=== PATIENT | female | born 1970 | race Caucasian/White ===

== ENCOUNTER 2020-05-19 18:53 | Emergency (ER) | payer OTHER ==
[2020-05-19 19:00] VITALS: TEMP 99; BMI 24.2
[2020-05-19] MEDS ORDERED: ASPIRIN 81 MG CHEWABLE TABLETS PO ONE (19:58)
[2020-05-19] MEDS ORDERED: ASPIRIN 81 MG CHEWABLE TABLETS ONE (20:37)
[2020-05-19 20:43] LABS: BASO % 0.9 % (0-2.0); EOS % 0.6 % (0-4.5); HEMATOCRIT 40.5 % (32.4-45.2); HEMOGLOBIN 13.4 GM/dL (10.7-15.3); LYMPH % 19.7 % (8-40); MCH 33.9 pg (25.7-33.7); MCHC 33.2 g/dl (32.0-36.0); MEAN CELL VOLUME 102.2 fl (80-96); MEAN PLT VOLUME 7.2 fl (7.5-11.1); MONO % 10.1 % (3.8-10.2); NEUT % 68.7 % (42.8-82.8); PLATELET COUNT 332 K/MM3 (134-434); RBC 3.96 M/mm3 (3.60-5.2); RDW 12.1 % (11.6-15.6); WHITE BLOOD COUNT 6.1 K/mm3 (4.0-10.0)
[2020-05-19 20:49] LABS: INR 0.94 (0.83-1.09); PROTHROMBIN TIME (PATIENT) 11.4 SEC (9.7-13.0)
[2020-05-19 20:52] LABS: ACTIVATED PTT 23.8 SECONDS (25.2-36.5)
[2020-05-19 20:54] LABS: CHLORIDE 96 mmol/L (98-107); POTASSIUM 4.8 mmol/L (3.5-5.1); SODIUM 130 mmol/L (136-145)
[2020-05-19 20:56] LABS: ALBUMIN 4.4 g/dl (3.4-5.0); ANION GAP 9 MMOL/L (8-16); BLOOD UREA NITROGEN 11.3 mg/dL (7-18); CALCIUM 9.7 mg/dL (8.5-10.1); CO2 26 mmol/L (21-32); GLUCOSE,RANDOM 119 mg/dL (74-106)
[2020-05-19 20:59] LABS: SGOT/AST 27 U/L (15-37); SGPT/ALT 41 U/L (13-61)
[2020-05-19 21:00] LABS: CREATININE 0.6 mg/dL (0.55-1.3)
[2020-05-19 21:01] LABS: BILIRUBIN,TOTAL 0.3 mg/dL (0.2-1); TOT PROT 7.9 g/dl (6.4-8.2)
[2020-05-19 21:02] LABS: ALK PHOS 82 U/L (45-117)
[2020-05-19] MEDS ORDERED: LACTATED RINGERS SOLUTION 1000 ML INFUS.BAG IV ONE (22:07)
[2020-05-19] MEDS ORDERED: ACETAMINOPHEN 325 MG TABLET (FP) PO ONE (23:29)
[2020-05-19] MEDS ORDERED: ACETAMINOPHEN 325 MG TABLET (FP) ONE (23:36)
[2020-05-20 01:08] VITALS: BP 149/87; PULSE 81
== END 2020-05-20 01:09 | disposition home or self-care (01) ==
LOC: SUPCPDRO 18:53 → JER 18:53
DX: R07.9 Chest pain, unspecified (principal)
CPT/HCPCS: 36415; 71046-TC-FY; 80053; 82550; 84439; 84443; 84484; 84703; 85025; 85610; 85730; 93005; 93010; 99285-25

== ENCOUNTER 2020-09-18 02:57 | Emergency (ER) | payer OTHER ==
[2020-09-18 03:17] VITALS: BP 130/84; PULSE 85; TEMP 98.3; BMI 22.8
[2020-09-18] MEDS ORDERED: DEXAMETHASONE SOD PHOSPHATE 10 MG/1 ML VIAL IM ONE (03:38)
[2020-09-18] MEDS ORDERED: diphenhydrAMINE HCL 25 MG CAPSULE (FP) PO ONE ×3 (03:40→03:44)
[2020-09-18] MEDS ORDERED: DEXAMETHASONE SOD PHOSPHATE 10 MG/1 ML VIAL ONE (03:41)
[2020-09-18] MEDS ORDERED: HYDROCORTISONE 1% TOPICAL CREAM 30 GM TUBE TP PRN (04:04)
== END 2020-09-18 04:54 | disposition home or self-care (01) ==
LOC: JER 02:57
PROC: 3E023NZ Introduction of Analgesics, Hypnotics, Sedatives into Muscle, Percutaneous Approach (ICD-10-PCS; principal; 2020-09-18)
DX: T78.40XA Allergy, unspecified, initial encounter (principal); L29.9 Pruritus, unspecified
CPT/HCPCS: 96372; 99284-25; J1100